=== PATIENT | male | born 1970 | race Caucasian/White ===

== ENCOUNTER 2021-10-04 03:58 | Observation (INO) | payer BC, SELFPAY ==
[2021-10-04] VITALS (7 sets, daily range): BP systolic 104–134; BP diastolic 72–86; PULSE 71–86; RESP 18; TEMP 37–37.3; O2SAT 97–100; BMI 26.7
--- NOTE | ~2021-10-04 | CT_ITS ---
EXAMINATION: CT abdomen pelvis w con DATE: 10/04/2021 05:02 INDICATION: Low abdominal pain. Nausea. TECHNIQUE: Computed tomography (CT) of the abdomen and pelvis was performed with 100 mL Omnipaque 350 intravenous contrast. Automated exposure control and iterative reconstruction technique were employe d. The dose-length product was 473.15 mGy-cm. COMPARISON: None. FINDINGS: The visualized portions of the lung bases demonstrate mild atelectasis. No pleural effusion . The heart size is normal. No pericardial effusion. The liver and spleen are normal. There are little es of cholecystectomy. The pancreas, adrenal glands, and right kidney are normal. There is a 5 mm sto ne in left kidney. The prostate is mildly enlarged. There are scattered diverticula in the colon. The re is fat stranding around the sigmoid colon with wall thickening of sigmoid colon and adjacent ileum , consistent with sigmoid diverticulitis. The appendix is normal. There are no pathologically enlarge d lymph nodes. There is no free intraperitoneal fluid. There are benign bone islands in the pelvis. T here is mild thoracic spondylosis and moderate lumbar spondylosis. IMPRESSION: 1. Acute sigmoid diverticulitis. No perforation or abscess. Reviewed, dictated and finalized at location A.
--- NOTE | ~2021-10-04 | US_ITS ---
EXAMINATION: US abdomen limited DATE: 10/04/2021 13:49 INDICATION: Right upper quadrant pain TECHNIQUE: Multiple grayscale and Doppler ultrasound images of the abdomen were obtained. COMPARISON: None available FINDINGS: The head and body of the pancreas are normal. The pancreatic tail is obscured by bowel gas. The liver is normal with normal echogenicity and echotexture. No surface nodularity. Normal hepatope kenna flow in the main portal vein. The normal common bile duct measures 5 mm. IMPRESSION: 1. No sonographic correlate for the patient's symptoms. Reviewed, dictated and finalized at location F.
--- NOTE | 2021-10-04 04:12 | ED.ABDPAIN ---
HPI - Abdominal Pain General Chief Complaint: Abdominal Pain Stated Complaint: lower ABD pain Time Seen by Provider: 10/04/21 04:01 Source: patient Mode of arrival: ambulatory Limitations: no limitations History of Present Illness HPI narrative: Pt presents with lower abdominal pain since 1700. Pt says it is constant. Pt denies vomiting or fever. Pt says he had a perorated diverticuli in the past and this feels similar. MD elicited complaint: abdominal pain Pertinent past history: other (perforated divertic) Onset (ago): hour(s) (11) Pain Consistency: constant Location: RLQ, LLQ and suprapubic Severity: severe Quality: dull Radiation: none Migration to: no migration Exacerbating factors: nothing Relieving factors: nothing Associated symptoms: denies other symptoms Related Data Allergies Allergy/AdvReac Type Severity Reaction Status Date / Time No Known Allergies Allergy Unverified 06/07/18 12:46 Review of Systems Review of Systems: All systems reviewed & are unremarkable except as noted in HPI and below PMFSH Family History Family History (Updated 06/19/18 @ 14:58 by DOCTOR UNKNOWN) Other Family history of malignant neoplasm Hypertension Social History Social History Smoking status: Never smoker Alcohol intake: never Exam Const: General: no acute distress Orientation/consciousness: patient oriented x3 Resp: Effort & Inspection: normal respiratory effort and tachypneic Auscultation: clear to auscultation bilaterally Cardio: Rate: regular rate Rhythm: regular rhythm GI: GI Palp: Yes Tenderness to palpation present (GI) (across lower abdomen), Yes Guarding due to palpation present (GI) and Yes Rebound tenderness present Auscultation: Hypoactive bowel sounds present Neuro: General: patient oriented x3, moves all extremities and no focal motor deficits Extrem: General: normal to inspection and no clubbing, cyanosis or edema Psych: Appearance: grossly normal Mental Status: mental status grossly normal Thought content: Yes Normal thought content present Course Course Emergency Course: pt a little better after dilaudid but still fairly uncomfortable may need to bring in for antibiotics and pain control Vital Signs Vital signs: Vital Signs Temperature 98.6 F 10/04/21 04:08 Pulse Rate 86 10/04/21 04:08 Respiratory Rate 18 10/04/21 04:08 Blood Pressure 134/86 10/04/21 04:08 Pulse Oximetry 100 10/04/21 04:08 Temperature 98.6 F 10/04/21 04:08 Pulse Rate 83 10/04/21 05:10 Respiratory Rate 18 10/04/21 05:10 Blood Pressure 126/78 10/04/21 05:10 Pulse Oximetry 97 10/04/21 05:10 MDM - Abdominal Pain Lab Data Result diagrams: 10/04/21 04:17 10/04/21 04:17 Labs: Lab Results 10/04/21 10/04/21 10/04/21 Range/Units 04:17 04:17 04:17 WBC 16.7 H (4.5-10.0) K/mm3 RBC 4.69 (4.6-6.20) M/mm3 Hgb 15.1 (14.0-18.0) g/dL Hct 42.7 (42.0-52.0) % MCV 91.0 (80-100) fl MCH 32.2 (26-34) pg MCHC 35.4 (32-36) g/dl RDW 12.1 (11.5-14.5) % Plt Count 173 (150-375) k/mm3 MPV 11.9 H (7.4-10.4) fl Immature Gran % (Auto) 0.4 (0-0.5) % Neut % (Auto) 79.7 H (45.5-73.1) % Lymph % (Auto) 11.3 L (18.3-44.2) % George % (Auto) 8.1 (2.6-8.5) % Eos % (Auto) 0.2 (0-4.4) % Baso % (Auto) 0.3 (0.2-1.2) % Lymph # (Auto) 1.89 (0.9-3.2) K/mm3 George # (Auto) 1.4 H (0.1-0.6) K/mm3 Eos # (Auto) 0.0 (0-0.3) K/mm3 Baso # (Auto) 0.1 (0.0-0.1) K/mm3 Abs Immat Gran (auto) 0.06 H (0.00-0.031) K/mm3 Absolute Neuts (auto) 13.3 H (1.3-6.7) K/mm3 Absolute Nucleated RBC 0.0 (0.0-0.012) K/mm3 Nucleated RBC % 0.0 (0.0-0.2) % PT 13.8 (11.1-14.7) Seconds INR 1.1 APTT 26.5 (22.3-36.8) SECONDS Sodium (137-145) mmol/L Potassium (3.4-5.0) mmol/L Chloride (98-107) mmol/L Carbon Dioxide (22-30) mmol/L Anion Gap (8-16) mmol/
[2021-10-04] MEDS: MORPHINE SULFATE (*CRX) 4 MG/ML INJ IV PUSH (04:20)
[2021-10-04] MEDS: ONDANSETRON INJ 4 MG/2 ML VIAL IV PUSH (04:20)
[2021-10-04 04:25] LABS: Basophils Absolute Auto 0.1 K/mm3 (0.0-0.1); Basophils Percent Auto 0.3 % (0.2-1.2); Eosinophils Percent Auto 0.2 % (0-4.4); Hematocrit 42.7 % (42.0-52.0); Hemoglobin 15.1 g/dL (14.0-18.0); Immature Granulocyte Absolute 0.06 K/mm3 (0.00-0.031); Immature Granulocyte Percent A 0.4 % (0-0.5); Lymphocytes Absolute Auto 1.89 K/mm3 (0.9-3.2); Lymphocytes Percent Auto 11.3 % (18.3-44.2); Mean Corpuscular HGB Conc 35.4 g/dl (32-36); Mean Corpuscular Hemoglobin 32.2 pg (26-34); Mean Platelet Volume 11.9 fl (7.4-10.4); Monocytes Absolute Auto 1.4 K/mm3 (0.1-0.6); Monocytes Percent Auto 8.1 % (2.6-8.5); Neutrophils Absolute Auto 13.3 K/mm3 (1.3-6.7); Neutrophils Percent Auto 79.7 % (45.5-73.1); Platelet Count Result 173 k/mm3 (150-375); Red Blood Count 4.69 M/mm3 (4.6-6.20); Red Cell Distribution Width 12.1 % (11.5-14.5); White Blood Count 16.7 K/mm3 (4.5-10.0)
[2021-10-04 04:34] LABS: Lactic Acid Reflex 0.9 mmol/L (0.7-2.0)
[2021-10-04 04:39] LABS: Add Urine Microscopic? YES; Amorphous Sediment Urine Few; Appearance Urine Cloudy (Clear); Bilirubin Urine Negative (Negative); Blood Urine Negative (Negative); Color Urine Yellow (Yellow); Glucose Urine UA Negative (Negative); Ketones Urine Negative (Negative); Leukocyte Esterase Ur Negative LEU/UL (Negative); Mucus Urine Rare /lpf; Nitrate Urine Negative (Negative); Protein Urine Negative (Negative); Specific Grav Ur 1.021 (1.001-1.035); Squamous Epithelial Cell Urine Rare /hpf (Few); Urobilinogen Urine Negative mg/dL (<2.0); WBC Urine 0-3 /hpf
[2021-10-04 04:41] LABS: Alanine Aminotransferase 50 U/L (4-50); Albumin Level 4.6 g/dL (3.5-5.1); Alkaline Phosphatase 44 U/L (38-126); Anion Gap 8 mmol/L (8-16); Aspartate Amino Transferase 94 U/L (17-59); Bilirubin,Total 2.2 mg/dL (0.2-1.3); Blood Urea Nitrogen 20 mg/dL (9-20); Calcium 8.9 mg/dL (8.4-10.2); Carbon Dioxide 23 mmol/L (22-30); Chloride 102 mmol/L (98-107); Estimated CRCL calculation 82 ml/min; Estimated Glomerular Filt Rate > 60; Glucose 105 mg/dL (65-110); Lipase 980 U/L (23-300); Potassium 4.6 mmol/L (3.4-5.0); Sodium 133 mmol/L (137-145)
[2021-10-04 04:43] LABS: INR 1.1; Prothrombin Time 13.8 Seconds (11.1-14.7)
[2021-10-04 04:44] LABS: Partial Thromboplastin Time 26.5 SECONDS (22.3-36.8)
[2021-10-04] MEDS: HYDROmorphone HCL INJ (*CRX) 1 MG/ML SYR IV PUSH ×3 (04:47→21:05)
[2021-10-04] MEDS: PIPERACILLIN/TAZOBACTAM SOD 4.5 GM in SODIUM CHLORIDE 0.9% IV 100 ML 200 ML IVPB (06:46)
--- NOTE | 2021-10-04 07:25 | ADMGEN ---
This patient, Ozzie Parry, was admitted to [facility] Surg Room 302-01. Patient/family oriented to hospital policies and general routines including ID bracelet, bed and alarms, visiting hours, pain management, procedures, bathroom and other care routines, personal items, smoking policy, room service/diet, and visiting hours. Information on how to activate the Rapid Response Team has been discussed. Patient/Family are encouraged to report perceived risks to care and to ask questions if they do not understand what they are told or what they should do.
--- NOTE | 2021-10-04 09:28 | PM.CNGS ---
Assessment and Plan Assessment and plan (1) Acute diverticulitis: Code(s): K57.92 - Diverticulitis of intestine, part unspecified, without perforation or abscess without bleeding Status: Acute Assessment and Plan: CT scan reviewed and discussed with the patient in detail. He has evidence of acute sigmoid diverticulitis, with no evidence of perforation or abscess. White blood cell count [id number]. His abdominal pain has improved and he is no longer feeling nauseous. We will allow him to have clear liquids now and start gentle IV fluids. Would recommend to continue with broad-spectrum IV antibiotics and repeat labs tomorrow. The patient does have a history of multiple episodes of diverticulitis including perforated diverticulitis with abscess and was planning to see a colorectal surgeon to discuss surgery tomorrow. I discussed with the patient we would recommend to treat this acute episode and still plan to follow up with Colorectal after discharge to discuss proceeding with surgery once the inflammation has improved. To note, he has had a recent colonoscopy in April after his perforated diverticulitis, therefore he likely does not need another colonoscopy after this episode if being followed by Colorectal. Thank you for allowing us to see the patient in consultation and we will continue to follow along with you. (2) Elevated lipase: Code(s): R74.8 - Abnormal levels of other serum enzymes Status: Acute Assessment and Plan: Lipase 980 on initial labs. Pancreas appears normal on CT. He is only complaining of lower abdominal pain that correlates with the diverticulitis mentioned above. Could be related to the small bowel inflammation that is adjacent to the sigmoid colon noted on CT. Repeat labs in am. (3) Hyperbilirubinemia: Code(s): E80.6 - Other disorders of bilirubin metabolism Status: Acute Assessment and Plan: Total bilirubin 2.2 and AST 94 on initial labs. He is s/p a laparoscopic cholecystectomy in 2019. It is rare to have stones develop in the common bile duct after a cholecystectomy, but possible. No evidence of common bile duct dilatation or stone in CBD on the CT. Will order an abdominal ultrasound. Monitor labs. Additional Plan I have discussed the patient's case and plan of care with Dr. Chapman. History of Present Illness Consult details Consult date: 10/04/21 Reason for consult: other (Acute sigmoid diverticulitis) Narrative: This is a 51-year-old male with a history of diverticulitis, who presented to the ER with complaints of lower abdominal pain. He reports around 5:00 p.m. yesterday he noticed some mild lower abdominal pain. He also reports associated nausea and chills, but no vomiting or fever. The pain continued to worsen through the evening. He then presented to the ER due to the worsening pain. CT scan of the abdomen and pelvis showed acute sigmoid diverticulitis with no evidence of perforation or abscess. Incidentally noted is mild prostatomegaly and a 5 mm left kidney stone. Labs showed a white blood cell count of 16,700. Also noted was a total bilirubin of 2.2, AST 94, and lipase 980. The patient was admitted to the hospitalist service and given 1 dose of IV Zosyn. He was made NPO. Our service was consulted by the ED physician. The patient is now seen on the medical floor. He states his abdominal pain has improved and he is no longer feeling nauseated. He reports having 4 bowel movements yesterday that were loose and one around 2:00 a.m. this morning. He states that his bowels typically fluctuate between constipation and loose stools. He states it has been like that for years. He denies any recent blood in his stool or dark stools. He has had multiple episodes of diverticulitis in the past with his first episode around 2013. At that time, he was treated with oral antibiotics as an outpatient. He had another episode of diverticulitis in January of 2021 that was more sev
[2021-10-04] MEDS: SODIUM CHLORIDE 0.9% IV 1,000 ML 75 ML IV CONT ×2 (09:57→21:06)
--- NOTE | 2021-10-04 11:14 | PM.IMHP ---
H&P: HPI History of Present Illness Date/Time: 10/04/21 11:14 HPI: Patient is a 51-year-old male with history of perforated diverticulitis presented emergency department with a complaint of left lower quadrant abdominal stated his pain is similar to when had perforated diverticulitis, he denies any complaint of nausea or vomiting fever or chills, he denies any rectal bleeding, CT scan of abdomen showed diverticulitis without any perforation, patient is started on Zosyn, patient lipase are elevated, he does not have epigastric pain and does not have gallbladder, will continue to monitor, patient is seen by surgery service recommending conservative management and started the patient clear liquid will continue to monitor and further recommendation to follow. Patient is admitted observation status Chief Complaint: Abdominal pain Review of Systems Review of Systems: All systems reviewed & are unremarkable except as noted in HPI and below PMFSH Past Medical History Medical History History of diverticulitis Surgical History Surgical History History of colonoscopy with polypectomy History of esophagogastroduodenoscopy (EGD) History of inguinal hernia repair Bilateral inguinal hernia repair Recurrent left inguinal hernia repaired History of laparoscopic cholecystectomy 2019 History of sinus surgery Family History Family History Other Family history of malignant neoplasm Hypertension Social History Social History Smoking status: Never smoker Second hand tobacco smoke exposure: No Alcohol intake: current Drinks per week: 3 Alcohol use details: Occasional alcohol use, socially Substance use: never Living arrangements: with family Occupation/Education: occupation Additional occupation/education comments: Patient is currently coming out of the Gender identity (if verbalized by the patient): Male Spiritual care concerns: No Meds Home Medications and Allergies Home Medications Medication Instructions Recorded Confirmed Type meloxicam 15 mg PO DAILY 10/04/21 10/04/21 History simvastatin 20 mg PO QPM 10/04/21 10/04/21 History tamsulosin 0.4 mg PO DAILY 10/04/21 10/04/21 History Allergies Allergy/AdvReac Type Severity Reaction Status Date / Time No Known Allergies Allergy Unverified 06/07/18 12:46 Vital Signs Vital Signs - 24 hr 10/04/21 04:08 10/04/21 05:10 10/04/21 06:41 Temperature 98.6 F Pulse Rate 86 83 86 Respiratory Rate 18 18 18 Blood Pressure 134/86 126/78 112/75 Pulse Oximetry 100 97 97 10/04/21 07:36 Temperature 99.1 F Pulse Rate 73 Respiratory Rate 18 Blood Pressure 104/74 Pulse Oximetry 97 Exam Narrative: Patient is comfortable, NAD HEENT: eyes are clear and none icteric LUNGS:CTA HEART: RR S1S2 ABD: BS+, Soft and tender in left lower quadrant Lower extremities: no edema SKIN: nonjaundiced Neuro: grossly intact. H&P: Results Labs Labs: Short CBC 10/04/21 Range/Units 04:17 WBC 16.7 H (4.5-10.0) K/mm3 Hgb 15.1 (14.0-18.0) g/dL Hct 42.7 (42.0-52.0) % Plt Count 173 (150-375) k/mm3 BMP 10/04/21 04:17 Sodium 133 L Potassium 4.6 Chloride 102 Carbon Dioxide 23 BUN 20 Creatinine 1.00 Glucose 105 Calcium 8.9 Liver Function 10/04/21 Range/Units 04:17 Total Bilirubin 2.2 H (0.2-1.3) mg/dL AST 94 H (17-59) U/L ALT 50 (4-50) U/L Alkaline Phosphatase 44 (38-126) U/L Albumin 4.6 (3.5-5.1) g/dL Urine 10/04/21 Range/Units 04:17 Urine Color Yellow (Yellow) Urine Appearance Cloudy H (Clear) Urine pH 7.0 (5.0-9.0) Ur Specific [place] 1.021 (1.001-1.035) Urine Protein Negative (Negative) mg/dL Urine Glucose (UA) Negati
[2021-10-04] MEDS: ACETAMINOPHEN 500 MG TABLET 1000 MG PO (17:44)
[2021-10-05] MEDS: HYDROmorphone HCL INJ (*CRX) 1 MG/ML SYR IV PUSH (04:47)
[2021-10-05 06:00] VITALS: BP 109/71; PULSE 87; RESP 18; TEMP 37.8; O2SAT 96
[2021-10-05 06:05] LABS: Hemoglobin 13.1 g/dL (14.0-18.0); Mean Corpuscular HGB Conc 34.5 g/dl (32-36); Mean Corpuscular Hemoglobin 31.7 pg (26-34); Platelet Count Result 143 k/mm3 (150-375); Red Blood Count 4.13 M/mm3 (4.6-6.20); Red Cell Distribution Width 12.1 % (11.5-14.5); White Blood Count 10.1 K/mm3 (4.5-10.0)
[2021-10-05 06:28] LABS: Alanine Aminotransferase 226 U/L (4-50); Albumin Level 3.7 g/dL (3.5-5.1); Alkaline Phosphatase 66 U/L (38-126); Anion Gap 4 mmol/L (8-16); Aspartate Amino Transferase 144 U/L (17-59); Bilirubin,Total 3.7 mg/dL (0.2-1.3); Blood Urea Nitrogen 13 mg/dL (9-20); Calcium 8.1 mg/dL (8.4-10.2); Carbon Dioxide 26 mmol/L (22-30); Chloride 101 mmol/L (98-107); Estimated CRCL calculation 75 ml/min; Estimated Glomerular Filt Rate > 60; Glucose 125 mg/dL (65-110); Lipase 612 U/L (23-300); Magnesium 1.8 mg/dL (1.6-2.3); Potassium 3.9 mmol/L (3.4-5.0); Sodium 131 mmol/L (137-145)
--- NOTE | 2021-10-05 09:57 | PM.PNGS ---
Progress Note: A&P Assessment and Plan (1) Acute diverticulitis: Code(s): K57.92 - Diverticulitis of intestine, part unspecified, without perforation or abscess without bleeding Status: Acute Assessment and Plan: Clinically improving. WBC down to 10,000. Abdominal pain has improved and less tender today. Will advance to full liquids. Dietitian consulted to discuss low versus high fiber diet again prior to discharge. Recommend low fiber diet on discharge for 2 weeks or until advanced by the surgeon. Okay to discharge from our standpoint later today. Recommend to reschedule the follow-up with the Colorectal Surgeon at [facility], and if you are not able to get in to see them in the next 2 weeks, then follow-up with Dr. Chapman in our office at the time the antibiotics will be stopped. (2) Elevated lipase: Code(s): R74.8 - Abnormal levels of other serum enzymes Status: Acute Assessment and Plan: Lipase down to 600 today. No clinical evidence of pancreatitis. Could be related to the small bowel inflammation. Follow-up with PCP. (3) Hyperbilirubinemia: Code(s): E80.6 - Other disorders of bilirubin metabolism Status: Acute Assessment and Plan: LFTs elevated today with total bilirubin up to 3.7. RUQ ultrasound showed no abnormalities. S/p laparoscopic cholecystectomy in 2019. He reports having elevated liver enzymes in the past when he was admitted in January of 2021 and had a negative Hepatitis panel. Discussed with Hospitalist, would recommend outpatient f/u with PCP. Additional Plan I have discussed the patient's case and plan of care with Dr. Chapman. Subjective Subjective Date/Time Seen: 10/05/21 09:57 Patient reports: no new complaints, feels better, tolerating liquids well, flatus and no bowel movement Interval history: Patient seen and examined this morning. He denies any abdominal pain this morning, but states he still feels tender across his lower abdomen. No nausea, bloating, or vomiting. He is tolerating clear liquids. He reports flatus, but no BM since yesterday around 2:00 am. He did have a temp of 100F this morning but reports that his room was very hot and he was sitting in the sun this morning, and he thought this was related. He did not have chills or feel febrile. No other complaints at this time. When questioned further regarding his elevated LFTs and lipase, the patient reports having elevated LFTs during his hospitalization in January of 2021 at the [place]. He also reports being told he had jaundice. He states they tested him for Hepatitis and initially thought he had Hepatitis A, but ended up telling him that he does NOT have hepatitis. He states he was not treated for hepatitis and they were not sure why his liver enzymes were elevated. Exam Const: General: comfortable, no acute distress and awake Resp: Effort & Inspection: no respiratory distress Auscultation: clear to auscultation bilaterally Cardio: Rate: regular rate Rhythm: regular rhythm GI: Inspection: normal to inspection and non-distended GI Palp: Yes Soft to palpation, Yes Tenderness to palpation present (GI) (tender throughout, worse in lower abdomen), No Guarding due to palpation present (GI), Yes No hepatosplenomegaly present and No Rebound tenderness present Auscultation: normal bowel sounds Skin: General skin exam: normal color Neuro: General: moves all extremities and no focal motor deficits Extrem: General: normal to inspection Psych: Insight: Good insight present (Psych) Judgement: Good judgement present (Psych) Objective Data Vital Signs Vital Signs: Vital Signs - 24 hr 10/04/21 14:00 10/04/21 21:01 10/04/21 21:40 Temperature 99.1 F 98.9 F Pulse Rate 72 71 Respiratory Rate 18 18 Blood Pressure 127/78 118/72 Pulse Oximetry 100 97 100 10/05/21 06:00 Temperature 100.0 F H Pulse Rate 87 Respiratory Rate 18 Blood Pressure 109/71 Pulse Oximetry 96 Intake/Output Intake/Ou
--- NOTE | 2021-10-05 11:33 | PCNSR ---
On 10/05/21, the student, Lauren Yoon, provided education completed [facility] documentation on this patient. I have reviewed the student's documentation and agree with the findings.
[2021-10-05] MEDS: HYDROcodone/acetaminophen (*CRX) 5-325 MG TABLET 1 TAB PO (11:51)
--- NOTE | 2021-10-05 13:59 | PM.IMPN ---
Progress Note: A&P Assessment and Plan (1) Acute diverticulitis: Code(s): K57.92 - Diverticulitis of intestine, part unspecified, without perforation or abscess without bleeding Status: Acute Assessment and Plan: HPI: Patient is a 51-year-old male with history of perforated diverticulitis presented emergency department with a complaint of left lower quadrant abdominal stated his pain is similar to when had perforated diverticulitis, he denies any complaint of nausea or vomiting fever or chills, he denies any rectal bleeding, CT scan of abdomen showed diverticulitis without any perforation, patient is started on Zosyn, patient lipase are elevated, he does not have epigastric pain and does not have gallbladder, will continue to monitor, patient is seen by surgery service recommending conservative management and started the patient clear liquid will continue to monitor and further recommendation to follow. (2) Elevated lipase: Code(s): R74.8 - Abnormal levels of other serum enzymes Status: Acute Assessment and Plan: Patient remains clinically stable unlikely acute pancreatitis will continue to monitor (3) Hyperbilirubinemia: Code(s): E80.6 - Other disorders of bilirubin metabolism Status: Acute Assessment and Plan: Patient total bili is elevated and his AST, will monitor Subjective Date/time seen: 10/05/21 13:59 Review of Systems Review of Systems: All systems reviewed & are unremarkable except as noted in HPI and below Exam Narrative: Patient is comfortable, NAD HEENT: eyes are clear and none icteric LUNGS:CTA HEART: RR S1S2 ABD: BS+, Soft and tender in left lower quadrant Lower extremities: no edema SKIN: nonjaundiced Neuro: grossly intact. Objective Data Vital Signs Vital Signs: Vital Signs - 24 hr 10/04/21 14:00 10/04/21 21:01 10/04/21 21:40 Temperature 99.1 F 98.9 F Pulse Rate 72 71 Respiratory Rate 18 18 Blood Pressure 127/78 118/72 Pulse Oximetry 100 97 100 10/05/21 06:00 Temperature 100.0 F H Pulse Rate 87 Respiratory Rate 18 Blood Pressure 109/71 Pulse Oximetry 96 Intake/Output Intake/Output: Intake & Output 10/02/21 10/03/21 10/04/21 10/05/21 23:59 23:59 23:59 23:59 Intake Total 3000 890 Balance 3000 890 Meds/Results Medications: Active Medications Generic Name Dose Route Start Last Admin Trade Name Randellq PRN Reason Stop Dose Admin Acetaminophen 1,000 mg 10/04/21 09:25 10/04/21 17:44 Acetaminophen 500 Mg Tablet PO 1,000 mg Q6H PRN Administration Mild Pain (1-3) or Fever Hydrocodone Bitart/Acetaminophen 1 tab 10/05/21 09:59 10/05/21 11:51 Hydrocodone/Acetaminophen (*Crx) 5-325 Mg Tablet PO 1 tab Q6H PRN Administration Pain Rated 4-6 Hydromorphone HCl 0.5 mg 10/04/21 09:25 Hydromorphone Hcl Inj (*Crx) 1 Mg/Ml Syr IV PUSH Q4H PRN Pain Rated 7-10 Piperacillin/Tazobactam/Dextrose 3.375 gm in 50 mls @ 100 mls/hr 10/04/21 10:00 10/05/21 12:17 Zosyn 3.375 Gm/D5w 50ml Pm IVPB Infused Q6HR JOSEF Infusion Ondansetron HCl 4 mg 10/04/21 06:23 Ondansetron Inj 4 Mg/2 Ml Vial IV PUSH Q4H PRN Nausea Radiology Results: ITS Impressions Abdomen/Pelvis CT 10/04/21 06:57 IMPRESSION: 1. Acute sigmoid diverticulitis. No perforation or abscess. Abdomen Ultrasound 10/04/21 14:05 IMPRESSION: 1. No sonographic correlate for the patient's symptoms. Labs Labs: Laboratory Results - last 24 hr 10/05/21 10/05/21 05:30 05:30 WBC 10.1 H RBC 4.13 L Hgb 13.1 L Hct 38.0 L MCV 92.0 MCH 31.7 MCHC 34.5 RDW 12.1 Plt Count 143 L MPV 12.0 H Sodium 131 L Potassium 3.9 Chloride 101 Carbon Dioxide 26 Anion Gap 4 L BUN 13 D Creatinine 1.10 Estim Creat Clear Calc 75 Estimated GFR > 60 Glucose 125 H Calcium 8.1 L Magnesium 1.8 Total Bilirubin 3.7 H AST 144 H ALT 226 H [place]
[2021-10-05 14:00] VITALS: BP 110/62; PULSE 88; RESP 18; TEMP 37.1; O2SAT 96
--- NOTE | 2021-10-05 14:00 | PM.DS ---
DS: Admitting Diagnosis Discharge Date 10/05/2021 Admitting Diagnosis Abdominal pain DS: Discharge Diagnosis Discharge Diagnosis (1) Acute diverticulitis: Code(s): K57.92 - Diverticulitis of intestine, part unspecified, without perforation or abscess without bleeding Status: Acute Assessment and Plan: HPI: Patient is a 51-year-old male with history of perforated diverticulitis presented emergency department with a complaint of left lower quadrant abdominal stated his pain is similar to when had perforated diverticulitis, he denies any complaint of nausea or vomiting fever or chills, he denies any rectal bleeding, CT scan of abdomen showed diverticulitis without any perforation, patient is started on Zosyn, patient lipase are elevated, he does not have epigastric pain and does not have gallbladder, will continue to monitor, patient is seen by surgery service recommending conservative management and started the patient clear liquid will continue to monitor and further recommendation to follow. (2) Elevated lipase: Code(s): R74.8 - Abnormal levels of other serum enzymes Status: Acute Assessment and Plan: Patient remains clinically stable unlikely acute pancreatitis will continue to monitor (3) Hyperbilirubinemia: Code(s): E80.6 - Other disorders of bilirubin metabolism Status: Acute Assessment and Plan: Patient total bili is elevated and his AST, will monitor DS: Summary Hospital Course Reason for hospitalization: HPI: Patient is a 51-year-old male with history of perforated diverticulitis presented emergency department with a complaint of left lower quadrant abdominal stated his pain is similar to when had perforated diverticulitis, he denies any complaint of nausea or vomiting fever or chills, he denies any rectal bleeding, CT scan of abdomen showed diverticulitis without any perforation, patient is started on Zosyn, patient lipase are elevated, he does not have epigastric pain and does not have gallbladder, will continue to monitor, patient is seen by surgery service recommending conservative management and started the patient clear liquid will continue to monitor and further recommendation to follow. Patient is admitted observation status Chief Complaint: Abdominal pain Hospital Course: today patient is feeling much better and has improved has been tolerating his clear liquid seen by surgery service recommended once the diet low-fat, is able to tolerate his diet has no complaints of abdominal pain nausea or vomiting, patient is clinically stable will discharge the patient today, patient bilirubin. and liver enzymes are elevated patient states is history of elevated liver enzymes seen by his primary care, abdominal ultrasound was negative for any pathology, will discharge the patient home today today patient clinically, seen by surgery service and able to tolerate diet will discharge patient today Time Spent with Patient Time attestation: Total time spent providing and/or coordinating discharge services: DS: Data Data Completed and Pending Labs on day of discharge: Labs from last 24 hours 10/05/21 10/05/21 05:30 05:30 WBC 10.1 H RBC 4.13 L Hgb 13.1 L Hct 38.0 L MCV 92.0 MCH 31.7 MCHC 34.5 RDW 12.1 Plt Count 143 L MPV 12.0 H Sodium 131 L Potassium 3.9 Chloride 101 Carbon Dioxide 26 Anion Gap 4 L BUN 13 D Creatinine 1.10 Estim Creat Clear Calc 75 Estimated GFR > 60 Glucose 125 H Calcium 8.1 L Magnesium 1.8 Total Bilirubin 3.7 H AST 144 H ALT 226 H Alkaline Phosphatase 66 Total Protein 6.0 L Albumin 3.7 Lipase 612 H Discharge Plan Discharge Attending physician on discharge: Meredith Lamb Consulting providers: Natanael Chen ; Jassi Trujillo V. ; Moriah Celestin ; Torey Chapman Discharging Clinician: Meredith Lamb Patient Disposition: Home, Self-Care Activity: as to
== END 2021-10-05 14:41 | disposition home or self-care (01) ==
LOC: ANHED 06:34 → ANH3MEDSUR 11:16
PROVIDERS: Admitting Provider Internal Medicine; Emergency Provider Emergency Medicine; PCP Family Medicine Sports Medicine; Visit Provider Family Medicine
DX: K57.32 Diverticulitis of large intestine without perforation or abscess without bleeding (principal); R94.8 Abnormal results of function studies of other organs and systems; E80.6 Other disorders of bilirubin metabolism
CPT/HCPCS: 36415; 74177; 76705; 80053; 81001; 83605; 83690; 83735; 85025; 85027; 85610; 85730; 96361; 96365; 96375; 96376; 99285; A9270; G0378; J1170; J2270; J2405; J2543; J7030; Q9967

== ENCOUNTER 2022-05-23 12:54 | Outpatient (CLI) | payer BC, SELFPAY ==
--- NOTE | 2022-05-23 13:10 | ECG_ITS ---
Measurements Intervals [place] Rate: 70 P: 42 DE: 168 QRS: 24 QRSD: 88 T: 41 QT: 363 QTc: 393 Interpretive Statements SINUS RHYTHM NO PREVIOUS ECG AVAILABLE FOR COMPARISON Electronically Signed On 05-23-2022 13:28:22 JOB ORDER CLERK by Christiano Bull M.D.
== END 2022-05-23 12:55 | disposition home or self-care (01) ==
LOC: ANHCARD 12:55
PROVIDERS: PCP Family Medicine Sports Medicine; Visit Provider Family Medicine Sports Medicine
DX: R00.0 Tachycardia, unspecified (principal)
CPT/HCPCS: 93005

== ENCOUNTER 2022-06-22 19:29 | Emergency (ER) | payer BC, SELFPAY ==
[2022-06-22] VITALS (11 sets, daily range): BP systolic 123–171; BP diastolic 49–83; PULSE 62–77; RESP 10–20; TEMP 36.1; O2SAT 99–100
--- NOTE | ~2022-06-22 | XR_ITS ---
XR chest 2V DATE: 06/22/2022 20:12 INDICATION: Chest pain and shortness of breath TECHNIQUE: PA and lateral views COMPARISON: None FINDINGS: Normal heart size. No hilar or mediastinal enlargement. No pulmonary infiltrate or consolid ation, pleural effusion or pulmonary vascular congestion or pneumothorax. Heart monitor device overlies the left chest. Minimal thoracic dextroscoliosis. Surgical clips, right upper quadrant, consistent with cholecystectomy. IMPRESSION: No active cardiopulmonary disease Reviewed, dictated and finalized at location A. AULIC LIFT OPERATOR
--- NOTE | 2022-06-22 19:35 | ECG_ITS ---
Measurements Intervals [place] Rate: 69 P: 26 [place]: 186 QRS: -10 QRSD: 98 T: 4 QT: 359 QTc: 386 Interpretive Statements SINUS RHYTHM DELAYED PRECORDIAL R/S TRANSITION BORDERLINE T WAVE ABNORMALITY- INFERIOR LEADS BORDERLINE ECG COMPARED TO ECG 05/23/2022 13:20:43 NO SIGNIFICANT CHANGES Electronically Signed On 06-22-2022 20:54:14 [employer]URAL IRON WORKER by Eddie Veloz D.O.
[2022-06-22 20:21] LABS: Basophils Absolute Auto 0.1 K/mm3 (0.0-0.1); Basophils Percent Auto 0.8 % (0.2-1.2); Eosinophils Absolute Auto 0.2 K/mm3 (0-0.3); Hematocrit 43.7 % (42.0-52.0); Hemoglobin 15.1 g/dL (14.0-18.0); Immature Granulocyte Absolute 0.04 K/mm3 (0.00-0.031); Immature Granulocyte Percent A 0.5 % (0-0.5); Lymphocytes Absolute Auto 2.52 K/mm3 (0.9-3.2); Lymphocytes Percent Auto 29.5 % (18.3-44.2); Mean Corpuscular HGB Conc 34.6 g/dl (32-36); Mean Corpuscular Hemoglobin 31.9 pg (26-34); Mean Corpuscular Volume 92.2 fl (80-100); Mean Platelet Volume 11.4 fl (7.4-10.4); Monocytes Percent Auto 11.5 % (2.6-8.5); Neutrophils Absolute Auto 4.8 K/mm3 (1.3-6.7); Neutrophils Percent Auto 55.7 % (45.5-73.1); Platelet Count Result 222 k/mm3 (150-375); Red Blood Count 4.74 M/mm3 (4.6-6.20); Red Cell Distribution Width 12.9 % (11.5-14.5); White Blood Count 8.5 K/mm3 (4.5-10.0)
[2022-06-22 20:32] LABS: Alanine Aminotransferase 21 U/L (6-50); Albumin Level 4.1 g/dL (3.5-5.1); Alkaline Phosphatase 46 U/L (38-126); Anion Gap 2 mmol/L (8-16); Aspartate Amino Transferase 26 U/L (17-59); Bilirubin,Total 0.6 mg/dL (0.2-1.3); Blood Urea Nitrogen 19 mg/dL (9-20); Calcium 8.3 mg/dL (8.4-10.2); Carbon Dioxide 28 mmol/L (22-30); Chloride 102 mmol/L (98-107); Estimated CRCL calculation 75 ml/min; Estimated Glomerular Filt Rate > 60; Glucose 101 mg/dL (65-110); Lipase 148 U/L (23-300); Potassium 3.8 mmol/L (3.4-5.0); Sodium 132 mmol/L (137-145)
[2022-06-22 20:43] LABS: Troponin I < 0.012 ng/mL (0.000-0.034)
[2022-06-22 20:52] LABS: INR 1.1; Partial Thromboplastin Time 26.9 SECONDS (22.3-36.8); Prothrombin Time 13.9 Seconds (11.1-14.7)
[2022-06-22] MEDS: ASPIRIN 81 MG CHEWABLE TABLET 324 MG PO (22:20)
[2022-06-22 22:42] LABS: D Dimer < 0.27 ug/mL (<0.48)
--- NOTE | 2022-06-22 22:42 | ED.CHESTPAIN ---
HPI - Chest Pain General Chief Complaint: Chest Pain Stated Complaint: Chest pain Time Seen by Provider: 06/22/22 21:44 Source: patient and RN notes reviewed Mode of arrival: ambulatory Limitations: no limitations History of Present Illness HPI narrative: This is a 51 year old male who presents for evaluation of chest pain. He has been having midsternal chest pain for the past 1 week. He describes it as nonradiating chest tightness. He notices the pain more with breathing. He states that he does not notice pain when he is active. He has been able to exercise this week without any chest pain. He also reports having sensation of heart pounding intermittently for 4 months. He states this happens mostly at night. He is currently wearing a 30 day holter monitor for evaluation of palpations. He denies history of recent travel, PE, dVT, leg swelling. Related Data Home Medications Medication Instructions Recorded Confirmed meloxicam 15 mg tablet 15 mg PO DAILY 10/04/21 10/04/21 simvastatin 20 mg tablet 20 mg PO QPM 10/04/21 10/04/21 tamsulosin 0.4 mg capsule 0.4 mg PO DAILY 10/04/21 10/04/21 Allergies Allergy/AdvReac Type Severity Reaction Status Date / Time No Known Allergies Allergy Unverified 06/07/18 12:46 Review of Systems Constitutional: Constitutional: Denies weakness Cardiovascular: Cardiovascular: Reports chest pain, Denies syncope, Reports rapid heart rate, Denies irregular heart rhythm, Denies leg edema and Denies dyspnea Respiratory: Respiratory: Denies chest congestion, Denies hemoptysis, Denies excessive phlegm production and Denies dyspnea Gastrointestinal: Gastrointestinal: Denies abdominal pain, Denies hematochezia, Denies diarrhea and Denies vomiting Genitourinary: Genitourinary: Denies hematuria, Denies dysuria, Denies penile discharge and Denies testicular pain Musculoskeletal: Musculoskeletal: Denies joint swelling, Denies loss of height and Denies muscle weakness Neurologic: Denies syncope, Denies focal weakness and Denies weakness PMFSH Past Medical History Medical History History of diverticulitis Surgical History Surgical History History of colonoscopy with polypectomy History of esophagogastroduodenoscopy (EGD) History of inguinal hernia repair Bilateral inguinal hernia repair Recurrent left inguinal hernia repaired History of laparoscopic cholecystectomy 2019 History of sinus surgery Family History Family History Other Family history of malignant neoplasm Hypertension Social History Social History Smoking status: Never smoker Second hand tobacco smoke exposure: No Alcohol intake: current Drinks per week: 3 Alcohol use details: Occasional alcohol use, socially Substance use: never Additional occupation/education comments: Patient is currently coming out of the Gender identity (if verbalized by the patient): Male Spiritual care concerns: No Exam Const: General: healthy appearing, no acute distress and alert Nutritional Appearance: well nourished Orientation/consciousness: patient oriented x3 Limitations: no limitations HENMT: Head: normal to inspection Face and sinus: normal facial exam Eyes: EOM: EOMs intact bilaterally Neck: Neck: normal visual inspection Chest: Chest palpation & inspection: normal inspection of the chest Resp: Effort & Inspection: normal respiratory effort Auscultation: clear to auscultation bilaterally Cardio: Rate: regular rate Rhythm: regular rhythm Heart sounds: no murmurs GI: GI Palp: Yes Soft to palpation, No Tenderness to palpation present (GI), No Guarding due to palpation present (GI) and No Rigid due to palpation Auscultation: normal bowel sounds Back/Spine/Pelvis: Back: no CVA t
[2022-06-22 22:58] LABS: Troponin I < 0.012 ng/mL (0.000-0.034)
[2022-06-23 00:02] VITALS: BP 127/67; PULSE 60; RESP 19; O2SAT 99
--- NOTE | 2022-06-23 00:46 | PC.NURSE ---
0045 Called pt after pt was discovered gone at 0025. Pt stated that MD stated that pt was discharged so he removed his IV and walked out of ED Rm1 without notifying staff. 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
== END 2022-06-23 00:15 | disposition home or self-care (01) ==
PROVIDERS: Emergency Provider General Practice; PCP Family Medicine Sports Medicine
DX: R07.2 Precordial pain (principal); R94.31 Abnormal electrocardiogram [ECG] [EKG]
CPT/HCPCS: 36415; 71046; 80053; 83690; 84484; 85025; 85380; 85610; 85730; 93005; 99284; A9270

== ENCOUNTER 2022-12-14 15:21 | Outpatient (CLI) | payer BC, SELFPAY ==
--- NOTE | ~2022-12-14 | XR_ITS ---
EXAM: XR abdomen/kub 1V DATE: 12/14/2022 15:50 HISTORY: KIDNEY STONES . COMPARISON: CT abdomen and pelvis 10/04/2021. FINDINGS: Clear lung bases. Cholecystectomy clips. Normal bowel gas pattern. No organomegaly. Pelvic phleboliths. Regional bones and soft tissues normal for age. IMPRESSION: No radiographic evidence of nephrolithiasis. The previously detected left upper pole calc ulus may be obscured in the current exam or may have passed in the interval. Reviewed, dictated and finalized at location K. IMPRESSION: No radiographic evidence of nephrolithiasis. The previously detecte d left upper pole calculus may be obscured in the current exam or may have pass ed in the interval.
== END 2022-12-14 15:22 | disposition home or self-care (01) ==
PROVIDERS: PCP Family Medicine Sports Medicine
DX: N20.0 Calculus of kidney (principal)
CPT/HCPCS: 74018

== ENCOUNTER 2023-11-05 09:01 | Emergency (ER) | payer OTHER, BC, SELFPAY ==
[2023-11-05 09:03] VITALS: BP 156/82; PULSE 61; RESP 16; TEMP 36.7; O2SAT 98
[2023-11-05] MEDS: ACETAMINOPHEN 500 MG TABLET 1000 MG PO (09:30)
[2023-11-05] MEDS: KETOROLAC 30 MG/ML VIAL (*BKC) IM (09:31)
--- NOTE | 2023-11-05 09:49 | ED.BACK ---
HPI - Back Pain/Injury General Chief Complaint: Back Pain/Injury Stated Complaint: back injury at work Time Seen by Provider: 11/05/23 09:05 Source: patient Mode of arrival: ambulatory Limitations: no limitations History of Present Illness HPI Narrative: This is a 53-year-old male who presents to the ED for chief complaint of work related injury. Patient reports that he was on a large truck when the steps keep out. He states he fell about 3-4 feet and landed on his knees. Reports that the knees hurt initially but since then the back has been painful in the right lower back. Pain worse with movement. States he has been able to ambulate. Denies numbness, weakness, bowel or bladder dysfunction. Related Data Home Medications Medication Instructions Recorded Confirmed meloxicam 15 mg tablet 15 mg PO DAILY 10/04/21 10/04/21 simvastatin 20 mg tablet 20 mg PO QPM 10/04/21 10/04/21 tamsulosin 0.4 mg capsule 0.4 mg PO DAILY 10/04/21 10/04/21 Allergies Allergy/AdvReac Type Severity Reaction Status Date / Time No Known Allergies Allergy Verified 11/05/23 09:02 Review of Systems Review of Systems: All systems as dictated in [facility] Past Medical History Medical History History of diverticulitis Surgical History Surgical History History of colonoscopy with polypectomy History of esophagogastroduodenoscopy (EGD) History of inguinal hernia repair Bilateral inguinal hernia repair Recurrent left inguinal hernia repaired History of laparoscopic cholecystectomy 2019 History of sinus surgery Family History Family History Other Family history of malignant neoplasm Hypertension Social History Social History Smoking status: Never smoker Second hand tobacco smoke exposure: No Alcohol intake: current Drinks per week: 3 Alcohol use details: Occasional alcohol use, socially Substance use: never Living arrangements: with family Occupation/Education: occupation Additional occupation/education comments: Patient is currently coming out of the Gender identity (if verbalized by the patient): Male Spiritual care concerns: No Exam Narrative: GENERAL: Well-appearing, well-nourished, and in no acute distress. HEAD: Normocephalic, atraumatic. EYES: PERRLA and EOMI. ENT: Nares clear, no rhinorrhea or epistaxis. Mucous membranes moist. Oropharynx without tonsillar hypertrophy exudate or other lesions. NECK: Supple. No adenopathy or masses. CHEST: No respiratory distress. Clear to auscultation. No wheezes rales or rhonchi HEART: Regular rate and rhythm. No murmur heard. Normal peripheral pulses. ABDOMEN: Soft, nontender, nondistended, normal active bowel sounds. MSK: Mild right paraspinal lumbar tenderness. The muscle is tight. No midline spinal tenderness throughout the entire spine. 5/5 strength and sensation in the upper and lower extremities SKIN: Warm, dry, no rash. NEURO: Alert and oriented x3. No focal deficits. PSYCH: Normal mood and affect. Course Vital Signs Vital signs: Vital Signs Temperature 98.0 F 11/05/23 09:03 Pulse Rate 61 11/05/23 09:03 Respiratory Rate 16 11/05/23 09:03 Blood Pressure 156/82 H 11/05/23 09:03 Pulse Oximetry 98 11/05/23 09:03 Oxygen Delivery Room Air 11/05/23 09:03 Temperature 98.0 F 11/05/23 09:03 Pulse Rate 61 11/05/23 09:03 Respiratory Rate 16 11/05/23 09:03 Blood Pressure 156/82 H 11/05/23 09:03 Pulse Oximetry 98 11/05/23 09:03 Oxygen Delivery Room Air 11/05/23 09:03 MDM - Back Pain/Injury MDM Narrative Medical decision making narrative: This is a 53-year-old male who presents to the ED with chief complaint of lower back pain following work injury today. Vitals are n
== END 2023-11-05 09:59 | disposition home or self-care (01) ==
PROVIDERS: Emergency Provider Physician Assistant; PCP Family Medicine
DX: S39.012A Strain of muscle, fascia and tendon of lower back, initial encounter (principal); Z86.010 Personal history of colon polyps; Z90.49 Acquired absence of other specified parts of digestive tract; W17.89XA Other fall from one level to another, initial encounter
CPT/HCPCS: 96372; 99283; A9270; J1885